=== PATIENT | female | born 1930 | race Caucasian/White ===

== ENCOUNTER → 2017-05-10 | Outpatient (CLI) | payer MEDICARE, OTHER ==
[~2017-05-10] MED LIST: CIPROFLOXACIN500 MG PO
--- NOTE | ~2017-05-10 | PROC NOTE ---
[place], [place] PROCEDURE NOTE NAME: MARINA ANDREW UNIT #: [id number] ROOM: DOCTOR: KIN MARMOLEJOANN BIRTHDATE: [birth year] DOS: 05/10/2017 MODIFIED BARIUM SWALLOW ORDERING PHYSICIAN: Dr. Garcia. RADIOLOGIST: Dr. Lacey. BACKGROUND INFORMATION: The patient is an 87-year-old female who was seen for modified barium swallow. This test was ordered to rule out aspiration and determine least restrictive diet. The reports indicate that the patient has been choking. Medical history is significant for CP. The patient currently receives a pureed diet and honey-thick liquids. For today's assessment, she was alert and able to follow commands. The patient was cooperative. Dysarthric speech was present making her difficult to understand. Respiratory status was within normal limits. Oral peripheral examination revealed presence of few natural teeth on the bottom only. Lingual and labial coordination was poor; range of motion was reduced as well. The patient presented in a consistent open mouth position. Volitional cough was weak. The patient was unable to volitionally swallow. METHODS AND MATERIALS USED FOR THE EXAM: The patient was positioned in the lateral plane and the exam was viewed under fluoroscopy. The patient was presented with a variety of consistencies to assess swallowing skills including applesauce mixed with barium presented in half teaspoon amounts and honey and nectar thick barium presented by cup and spoon. ORAL PHASE: The patient achieved adequate labial seal around spoon. Significant anterior loss was observed when thick liquids were given by cup. Bolus formation and transit were moderately impaired with all consistencies given. Tongue to palate contact was adequate. Tongue to posterior pharyngeal wall contact was adequate. Velar functioning was within normal limits with no nasal regurgitation. PHARYNGEAL PHASE: The pharyngeal swallow occurred within a timely manner. During the swallow, laryngeal elevation and epiglottic function were adequate. No penetration or aspiration occurred with any consistency. There was no pooling in the pharynx. ESOPHAGEAL PHASE: This phase of the swallow was not formally assessed during this examination. IMPRESSIONS AND RECOMMENDATIONS: Based upon assessment results, this 87-year-old patient presents with a moderate oral phase dysphagia. The patient displayed anterior loss with thick liquids given by cup. Bolus formation and transit were moderately impaired. No penetration, aspiration or residue occurred during this examination. Recommend the patient remain on pureed diet and honey-thick liquids. Recommend implementation of safe swallow strategies including small bites and sips, feeding slowly to allow her time to propel and swallow each bite and alternate liquids and solids. Follow up therapy is at the [place], [place] PROCEDURE NOTE NAME: MARINA ANDREW UNIT #: [id number] ROOM: DOCTOR: VERONICA MARMOLEJO BIRTHDATE: [birth year] discretion of the group home speech pathologist. Results and recommendations were shared with the patient, her aide that accompanied her and a written copy was provided for education of group home staff. Thank you very much for this referral. Should you have any questions regarding this patient, please contact the speech pathologist at [phone]. VERONICA MARMOLEJO CM:PROCNOTE:PROCEDURE NOTE [id number] VERONICA MARMOLEJO
--- NOTE | ~2017-05-10 | SLPIE ---
[place], [place] CORPORATE SECURITIES RESEARCH ANALYST INITIAL EVALUATION NAME: MARINA ANDREW UNIT #: [id number] ROOM: DOCTOR: SÁNCHEZ RECINOS FACP, MD Speech Language Pathology Initial Evaluation Page 1 1 of Patient Name: MARINA ANDREW Date: 05/10/2017 10:48 AM : 1930 SOC Date: 05/10/2017 [facility] Provider #: [id number] Treating Clinician: VAISHALI Ingram-CORPORATE SECURITIES RESEARCH ANALYST Referring Physician: SÁNCHEZ BOONE Patient Information Address: [address] [place] [address] Physician: SÁNCHEZ BOONE Physician #: City, State, Zip: [place], [place] [address] Occupation: Unknown # of Approved Visits: 0 Gender: Female Front Worker: SONY JAMES Medicare #: [id number] Rehabilitation Information / History Onset Date Code Description Primary Diagnosis: 05/10/2017 A0000 NO DIAGNOSIS SENT TO THE [facility] Subjective Comments: Initial evaluation created to initiate the electronic medical record. Please see [employer] for details. Rehabilitation Information / History Clinical Findings Functional Goals Functional Limitation Reporting Swallowing G8996 - Swallowing functional limitation, current status at therapy episode outset and at reporting intervals Current Status: CK - At least 40 percent but less than 60 percent impaired, limited or restricted G8997 - Swallowing functional limitation, projected goal status, at therapy episode outset, at reporting intervals, and at discharge or to end reporting Goal Status: CK - At least 40 percent but less than 60 percent impaired, limited or restricted G8998 - Swallowing functional limitation, discharge status, at discharge from therapy or to end reporting Discharge Status: CK - At least 40 percent but less than 60 percent impaired, limited or restricted 05/10/2017 11:06:10 AM VAISHALI Ingram-KHANG Date/Time [place], [place] CORPORATE [employer]URITIES RESEARCH ANALYST INITIAL EVALUATION NAME: MARINA ANDREW UNIT #: [id number] ROOM: DOCTOR: SÁNCHEZ RECINOS FACP, MD [facility] License #: [id number] CM:THELMA [id number] [facility]
--- NOTE | ~2017-05-10 | SLPPN ---
[place], [place] [address] RECORDER PROGRESS NOTE NAME: MARINA ANDREW UNIT #: [id number] ROOM: DOCTOR: MATTHEW BOONE MD,SÁNCHEZ Speech Language Pathology Treatment Note Page 1 1 of Patient Name: MARINA ANDREW Date: 05/10/2017 11:06 AM : 1930 SOC Date: 05/10/2017 Provider: [facility] Provider #: [id number] Treating Clinician: VAISHALI Ingram-ELECT[address] RECORDER Referring Physician: SÁNCHEZ BOONE Onset Date Description Code Primary Diagnosis: 05/10/2017 A0000 NO DIAGNOSIS SENT TO [facility] Time In: 09:30 AM Time Out: 10:[address] RECORDER Interventions and CPT Codes Consisted of: CPT Code Modifiers Minutes Units MOTION FLUOROSCOPY/SWALLOW 43795 60 1 Total Minutes: 60 Total Timed Minutes: 0 Total Untimed Minutes: 60 Total Units: 1 Total Timed Units: 0 Total Untimed Units: 1 05/10/2017 11:07:05 AM HIRAM Ingram Date/Time State License #: [id number] CM:HOA [id number] [facility]
--- NOTE | ~2017-05-10 | SLPPOC ---
[place], [place] CHILDCARE WORKER PLAN OF CARE NAME: MARINA ANDREW UNIT #: [id number] ROOM: DOCTOR: SÁNCHEZ RECINOS FACP, MD Speech Language Pathology Plan of Care Page 1 1 (Initial Evaluation) of Patient Name: MARINA ANDREW Date: 05/10/2017 10:48 AM : 1930 SOC Date: 05/10/2017 Provider: [facility] Provider #: [id number] Treating Clinician: VAISHALI Ingram-CHILDCARE WORKER Referring Physician: SÁNCHEZ BOONE Medicare #: 1 [id number] Visits From SOC: Onset Date Description Code Primary Diagnosis: 05/10/2017 A0000 NO DIAGNOSIS SENT TO THE [facility] Subjective Comments: Initial evaluation created to initiate the electronic medical record. Please see [employer] for details. Initial Level Goals Functional Limitation Reporting Swallowing G8996 - Swallowing functional limitation, current status at therapy episode outset and at reporting intervals Current Status: CK - At least 40 percent but less than 60 percent impaired, limited or restricted G8997 - Swallowing functional limitation, projected goal status, at therapy episode outset, at reporting intervals, and at discharge or to end reporting Goal Status: CK - At least 40 percent but less than 60 percent impaired, limited or restricted G8998 - Swallowing functional limitation, discharge status, at discharge from therapy or to end reporting Discharge Status: CK - At least 40 percent but less than 60 percent impaired, limited or restricted 05/10/2017 11:06:10 AM SÁNCHEZ BOONE Date/Time HIRAM Ingram Date I certify the need for these services furnished under this plan of treatment while under my care. State License #: [id number] CM:SLPPOC [id number] [facility]
== END | disposition home or self-care (01) ==
LOC: RAD/SH 05-04 10:00
DX: I69.891 Dysphagia following other cerebrovascular disease (principal)